=== PATIENT | female | born 1960 | race Caucasian/White ===

== ENCOUNTER 2018-03-02 17:27 | Inpatient (IN) | payer OTHER ==
[2018-03-02] MEDS ORDERED: DOCUSATE SODIUM 100 MG CAP PO (18:30)
[2018-03-02] MEDS ORDERED: ACETAMINOPHEN 325 MG TAB PO (18:30)
[2018-03-02] MEDS ORDERED: NACL 0.9% 3 ML SYG IV (18:30)
[2018-03-02] MEDS ORDERED: MAGNESIUM HYDROXIDE 30ML CUP PO (18:30)
[2018-03-02] MEDS ORDERED: ONDANSETRON 4 MG INJ IV (18:30)
[2018-03-02] MEDS ORDERED: NA PHOSPHATE/BIPHOS 133 ML ENEMA PR (18:30)
[2018-03-02] MEDS ORDERED: BISACODYL (EC) 5 MG TAB PO (18:30)
[2018-03-02] MEDS: ONDANSETRON 4 MG INJ IV (18:53)
[2018-03-02] MEDS: ACETAMINOPHEN 325 MG TAB PO (20:04)
[2018-03-03 06:03] LABS: CREATININE 0.74 mg/dl (0.44-1.00)
[2018-03-03 06:03] LABS: BLOOD UREA NITROGEN 9 mg/dl (7-20)
[2018-03-03 06:23] LABS: HEMOGLOBIN A1C 5.2 % (0-5.9)
[2018-03-03 06:26] LABS: CHOLESTEROL 144 mg/dl (100-200)
[2018-03-03 06:26] LABS: HDL CHOLESTEROL 47 mg/dl (37-92); LDL CHOLESTEROL,CALCULATED 84 mg/dl; TRIGLYCERIDES 64 mg/dl (0-149)
[2018-03-03 06:36] LABS: FREE THYROXINE INDEX (Calc) 2.88 ug/ml (0.65-3.89)
[2018-03-03] MEDS: ASPIRIN 81 MG TAB PO (08:09)
[2018-03-03] MEDS: ONDANSETRON 4 MG INJ IV (08:10)
[2018-03-03] MEDS: ACETAMINOPHEN 325 MG TAB PO (08:10)
[2018-03-03] MEDS: TOPIRAMATE 25 MG TAB PO (08:10)
[2018-03-03] MEDS: ENOXAPARIN 40 MG/0.4 ML SYG SC (08:44)
[2018-03-04] MEDS: ASPIRIN 81 MG TAB PO (09:05)
[2018-03-04] MEDS: TOPIRAMATE 25 MG TAB PO (09:06)
[2018-03-04] MEDS: ACETAMINOPHEN 325 MG TAB PO ×2 (09:12→14:50)
[2018-03-04] MEDS: ENOXAPARIN 40 MG/0.4 ML SYG SC (09:32)
[2018-03-05] MEDS: TOPIRAMATE 25 MG TAB PO (08:09)
[2018-03-05] MEDS: ASPIRIN 81 MG TAB PO (08:09)
[2018-03-05] MEDS: ENOXAPARIN 40 MG/0.4 ML SYG SC (08:43)
[2018-03-05] MEDS: BENAZEPRIL 5 MG TAB NGT ×2 (14:09→20:44)
[2018-03-05 14:50] LABS: ADD MAN DIFF? NO
[2018-03-05 14:53] LABS: BASOPHIL # 0.1 10^3/ul (0.0-0.1); BASOPHILS % 0.9 % (0.0-2.0); EOSINOPHILS # 0.1 10^3/ul (0.0-0.5); EOSINOPHILS % 1.5 % (0.0-7.0); HEMOGLOBIN 13.4 g/dl (12.0-16.0); LYMPHOCYTES # 1.7 10^3/ul (0.8-2.9); LYMPHOCYTES % 32.8 % (15.0-51.0); MEAN CORPUSCULAR HEMOGLOBIN 31.5 pg (29.0-33.0); MEAN CORPUSCULAR HGB CONC 32.7 g/dl (32.0-37.0); MEAN CORPUSCULAR VOLUME 96.5 fl (82.0-101.0); MEAN PLATELET VOLUME 11.9 fl (7.4-10.4); MONOCYTE # 0.5 10^3/ul (0.3-0.9); NEUTROPHIL # 2.9 10^3/ul (1.6-7.5); NEUTROPHILS % 54.6 % (39.0-77.0); PLATELET COUNT 243 10^3/UL (140-415); RED BLOOD COUNT 4.25 10^6/ul (4.20-5.40); RED CELL DISTRIBUTION WIDTH 12.6 % (11.5-14.5)
[2018-03-05 14:53] LABS: WHITE BLOOD COUNT 5.3 10^3/ul (4.8-10.8)
[2018-03-05 15:17] LABS: ANION GAP 11 (8-16); BLOOD UREA NITROGEN 16 mg/dl (7-20); CALCIUM 9.5 mg/dl (8.4-10.2); CARBON DIOXIDE 29 mmol/L (21-31); CHLORIDE 109 mmol/L (97-110); CREATININE 0.81 mg/dl (0.44-1.00); GLUCOSE 87 mg/dl (70-220); POTASSIUM 3.8 mmol/L (3.5-5.1); SODIUM 145 mmol/L (135-144)
[2018-03-05 15:19] LABS: INR 0.94; PROTIME 12.7 Sec (11.9-14.9)
[2018-03-05] MEDS: ACETAMINOPHEN 325 MG TAB PO (20:45)
[2018-03-06] MEDS: ENOXAPARIN 40 MG/0.4 ML SYG SC (07:51)
[2018-03-06] MEDS: TOPIRAMATE 25 MG TAB PO (08:40)
[2018-03-06] MEDS: BENAZEPRIL 5 MG TAB NGT (08:41)
[2018-03-06] MEDS: ASPIRIN 81 MG TAB PO (08:41)
[2018-03-06] MEDS: LIDOCAINE 1% (MPF) 5 ML VIAL (10:29)
[2018-03-06] MEDS: ACETAMINOPHEN 325 MG TAB PO (12:41)
[2018-03-06 17:18] LABS: TROPONIN-I < 0.012 ng/ml (0.000-0.120)
[2018-03-07 12:43] LABS: THYROID MICROSOMAL ANTIBODY <1 IU/mL (<9)
== END 2018-03-06 17:48 | disposition home or self-care (01) | DRG 69 ==
LOC: 6WM 17:27
PROVIDERS: Internal Medicine Nephrology
PROC: 0GBG3ZX Excision of Left Thyroid Gland Lobe, Percutaneous Approach, Diagnostic (ICD-10-PCS; principal; 2018-03-02)
DX: G45.9 Transient cerebral ischemic attack, unspecified (principal); I47.2 Ventricular tachycardia; G43.909 Migraine, unspecified, not intractable, without status migrainosus; M32.9 Systemic lupus erythematosus, unspecified; M35.00 Sjogren syndrome, unspecified; E04.1 Nontoxic single thyroid nodule; I10 Essential (primary) hypertension
CPT/HCPCS: 70551; 76536; 76942; 80048; 80061; 82565; 83036; 84436; 84479; 84484; 84520; 85025; 85610; 85730; 86376; 86800; 87081; 88104; 88305; 88321; 92523; 92610; 93306; 93880; 97161; 97166